=== PATIENT | male | born 1970 | race Two or more races ===

== ENCOUNTER 2024-09-23 09:09 | Emergency (ER) | payer BC ==
[~2024-09-23] VITALS: Ht 182.9 cm; Wt 97.5 kg
[2024-09-23] MEDS ORDERED: AMLODIPINE BESY10 MG PO (09:30)
[2024-09-23 10:25] LABS: HEMATOCRIT 47.5 % (39.0-48.0); HEMOGLOBIN 16.8 g/dL (13-16.00); MEAN CORPUSCULAR HEMOGLOBIN 30.1 pg (27.00-32.0); MEAN CORPUSCULAR HGB CONC 35.4 g/dl (32.0-36.0); RED BLOOD COUNT 5.58 M/uL (4.00-6.00); RED CELL DISTRIBUTION WIDTH 14.1 % (11.5-14.5)
[2024-09-23 10:39] LABS: ALBUMIN 3.6 gm/dL (3.4-5.0); BILIRUBIN TOTAL 0.46 mg/dL (0.3-1.2); CALCIUM 8.6 mg/dL (8.5-10.1); CREATININE SERUM 1.21 mg/dL (0.70-1.30); GFR 62.97; TOTAL PROTEIN 7.6 gm/dL (6.4-8.2)
[2024-09-23 10:41] LABS: PLATELET COUNT 91 K/uL (150-450)
[2024-09-23 10:56] LABS: POTASSIUM 2.85 mEq/L (3.5-5.1)
[2024-09-23] MEDS ORDERED: 0.9 % SODIUM CHLORIDE 1,000 ML IV SCH (11:00)
[2024-09-23] MEDS ORDERED: POTASSIUM CHLORIDE 10 MEQ CAPSULE PO ONE (11:00)
[2024-09-23 11:12] LABS: URINE APPEARANCE Cloudy; URINE BILIRRUBIN Negative (NEGATIVE); URINE BLOOD Large; URINE COLOR Yellow; URINE GLUCOSE Negative (NEGATIVE); URINE KETONE Negative (NEGATIVE); URINE LEUKOCYTE Negative; URINE NITRATE Negative; URINE PROTEIN >=1000 (NEGATIVE); URINE UROBILINOGEN 0.2 E.U./dl
[2024-09-23 11:13] LABS: URINE BACTERIA 95.4 uL (0.0-1933); URINE CAST 6.62 uL (0.0-1.40); URINE EPITHELIAL CELLS 53.1 uL (0.0-38.8); URINE RBC 33.2 uL (0.0-20.8); URINE WBC 16.1 uL (0.0-23.2)
[2024-09-23] MEDS ORDERED: ONDANSETRON HCL 2 MG/ML VIAL ONE (11:35)
[2024-09-23] MEDS ORDERED: ONDANSETRON HCL 2 MG/ML VIAL IV ONE (11:45)
[2024-09-23] MEDS ORDERED: POTASSIUM BICARBONATE/CIT AC 25 MEQ TABLET.EFF PO ONE (11:45)
[2024-09-23 11:51] LABS: URINE YEAST NEGATIVE /hpf
[2024-09-23 14:48] LABS: CREATININE SERUM 1.23 mg/dL (0.70-1.30); GFR 61.79; POTASSIUM 3.15 mEq/L (3.5-5.1)
== END 2024-09-23 15:35 | disposition home or self-care (01) ==
LOC: ER 09:12
PROVIDERS: General Practice
DX: R53.81 Other malaise (principal); E87.6 Hypokalemia; J11.1 Influenza due to unidentified influenza virus with other respiratory manifestations; Z20.822 Contact with and (suspected) exposure to COVID-19